=== PATIENT | female | born 1940 | race Caucasian/White ===

== ENCOUNTER → 2017-03-13 | Outpatient (CLI) | payer MEDICARE ==
[2017-03-13 08:52] LABS: BUN 12 mg/dL (7-18)
[2017-03-13 08:53] LABS: GFR (ESTIMATED) 70 ML/MIN (59-)
== END ==
LOC: LAB 07:19
PROVIDERS: Nurse Practitioner Family
DX: I65.29 Occlusion and stenosis of unspecified carotid artery (principal); E78.1 Pure hyperglyceridemia